=== PATIENT | male | born 1985 | race Caucasian/White ===

== ENCOUNTER → 2017-08-22 | Outpatient (REF) | payer BC ==
[2017-08-22 11:06] LABS: PLATELET COUNT, AUTOMATED 193 K/uL (150-450)
== END ==
PROVIDERS: ATTEND Nurse Practitioner Family
DX: R52 Pain, unspecified (principal)
CPT/HCPCS: 82040; 82247; 82310; 82374; 82435; 82565; 82947; 84075; 84132; 84155; 84295; 84450; 84460; 84520; 85025; 85651

== ENCOUNTER 2018-01-21 20:02 | Emergency (ER) | payer BC ==
--- NOTE | 2018-01-21 20:08 | ER Report ---
History and Physical Time Seen By MD: 20:08 (ASAD CASTILLO-SAHRA) HPI/ROS CHIEF COMPLAINT: Abdominal pain and diarrhea HISTORY OF PRESENT ILLNESS: This is a 32-year-old male who presents to the emergency department for abdominal pain and diarrhea. Patient states that about 3 weeks ago he was in [facility], [place] a [place], upon returning had about 4-5 days worth of diarrhea, did follow up with his primary care provider was given a prescription for azithromycin, after about 24 hours the stooling did resolve. Patient states he's been doing okay since then however last night he began to have some systemic aches and chills, "bone achiness". Then developed some loose stools, progressively getting worse throughout the course of today, states it is dark, no however no blood. Patient denies taking any other medications other than NyQuil last night. Denies chest pain or shortness of breath. No documented fevers at home. The patient was also given a stool kit, states he did collect some stool however he did not return to the lab for analysis when he had his 1st episode of diarrhea. REVIEW OF SYSTEMS: Respiratory: No cough, no dyspnea. Cardiovascular: No chest pain, no palpitations. Gastrointestinal: As above. Musculoskeletal: As above. (ASAD CASTILLO-SAHRA) Allergies: Coded Allergies: No Known Drug Allergies (Unverified , 01/21/18) Home Meds Active Scripts Ciprofloxacin Hcl 500 Mg Tab (CIPRO 500 MG TAB) 500 Mg Tablet, 500 MG PO BID for infection, #14 Prov:JESÚS WALLACEQuique Mandujano DO 01/21/18 Past Medical/Surgical History The patient has no significant past medical or surgical history. (ASAD CASTILLO-SAHRA) Reviewed Nurses Notes: Yes (ASAD CASTILLO) Constitutional Vital Sign - Last 24 Hours 01/21/18 01/21/18 01/21/18 01/21/18 20:02 20:07 20:08 20:17 Temp 98.6 Pulse ??? 99 94 Resp 22 18 B/P (MAP) 115/84 115/84 (94) Pulse Ox 92 O2 Delivery Room Air 01/21/18 01/21/18 01/21/18 01/21/18 20:30 20:32 20:47 21:00 Pulse 92 85 Resp 33 B/P (MAP) 113/73 (86) 110/64 (79) Pulse Ox 91 93 01/21/18 01/21/18 01/21/18 01/21/18 21:02 21:32 21:45 21:47 Temp 100.7 Pulse 88 84 89 Resp 13 Pulse Ox 93 01/21/18 01/21/18 01/21/18 01/21/18 21:52 22:03 22:07 22:10 Temp 99.0 Pulse ??? 80 B/P (MAP) 109/59 (76) Pulse Ox 90 01/21/18 01/21/18 01/21/18 01/21/18 22:22 22:30 22:37 22:52 Pulse 93 73 72 Resp 11 20 20 B/P (MAP) 110/72 (85) Pulse Ox 92 89 90 01/21/18 01/21/18 01/21/18 01/21/18 23:00 23:07 23:22 23:37 Pulse 69 83 ??? Resp 17 43 B/P (MAP) 111/67 (82) Pulse Ox 89 94 01/21/18 23:38 Temp 97.8 (SHIRLENE WALLACE DO) Physical Exam General Appearance: The patient is alert, has no immediate need for airway protection and no current signs of toxicity. Eyes: Pupils equal and round no injection. Respiratory: Chest is non tender, lungs are clear to auscultation. Cardiac: regular rate and rhythm, no murmurs, clicks or rubs. Gastrointestinal: Abdomen is soft and mildly tender bilateral lower quadrants, no masses, bowel sounds normal. Musculoskeletal: Neck: Neck is supple and non tender. Extremities have full range of motion and are non tender. Skin: No rashes or lesions. DIFFERENTIAL DIAGNOSIS: After history and physical exam differential diagnosis was considered for abdominal pain including but not limited to appendicitis, cholecystitis, gastritis and urinary tract infection. (ASAD CASTILLO-) Medical Decision Making Data Points Result Diagram: 01/21/18201701/21/182017 Laboratory Hematology Test 01/21/18 20:18 01/21/18 20:19 01/21/18 21:20 Red Blood Count 5.45 M/uL (4.00-5.60) Mean Corpuscular Volume 86.2 fL (80.0-96.0) Mean Corpuscular Hemoglobin 30.5 pg (26.0-33.0) Mean Corpuscular Hemoglobin Concent 35.3 g/dL (32.0-36.0) Red Cell Distribution Width 12.4 % (11.5-14.5) Mean Platelet Volume 8.9 fL (7.2-11.1) Neutrophils (%) (Auto) 78.3 % (39.4-72.5) Lymphocytes (%) (Auto) 15.0 % (17.6-49.6) Monocytes (%) (Auto) 5.3 % (4.1-12.4) Eosinophils (%) (Auto) 0.8 % (0.4-6.7) Basophils (%) (Auto) 0.6 % (0.3-1.4) Nucleated RBC Relative Count (auto) 0.1 /100WBC Neutrophils # (Auto) 7.5 K/uL (2.0-7.4) Lymphocytes # (Auto) 1.4 K/uL (1.3-3.6) Monocytes # (Auto) 0.5 K/uL (0.3-1.0) Eosinophils # (Auto) 0.1 K/uL (0.0-0.5) Basophils # (Auto) 0.1 K/uL (0.0-0.1) Nucleated RBC Absolute Count (auto) 0.01 K/uL Sodium Level 136 mmol/L (137-145) Potassium Level 3.9 mmol/L (3.5-5.0) Chloride Level 101 mmol/L (98-107) Carbon Dioxide Level 24 mmol/L (22-30) Blood Urea Nitrogen 11 mg/dl (9-21) Creatinine 1.20 mg/dl (0.66-1.25) Glomerular Filtration Rate Calc > 60.0 Random Glucose 106 mg/dl (75-110) Calcium Level 9.2 mg/dl (8.4-10.2) Total Bilirubin 0.9 mg/dl (0.2-1.3) Aspartate Amino Transf (AST/SGOT) 15 U/L (0-35) Alanine Aminotransferase (ALT/SGPT) 26 U/L (0-56) Alkaline Phosphatase 58 U/L (0-126) Total Protein 7.5 g/dl (6.3-8.2) Albumin 4.3 g/dl (3.5-5.0) Lipase 56 U/L (23-300) Influenza Virus Type A (PCR) Negative (NEGATIVE) Influenza Virus Type B (PCR) Negative (NEGATIVE) Urine Color Yellow Urine Clarity Clear Urine pH 5.0 pH (4.8-9.5) Urine Specific [place] 1.020 Urine Protein Negative mg/dL (NEGATIVE) Urine Glucose (UA) Negative mg/dL (NEGATIVE) Urine Ketones Trace mg/dL (NEGATIVE) Urine Blood Negative (NEGATIVE) Urine Nitrite Negative (NEGATIVE) Urine Bilirubin Negative (NEGATIVE) Urine Urobilinogen Negative mg/dL (0.2-1.9) Urine Leukocyte Esterase Negative (NEGATIVE) Urine RBC <1 /HPF (0-2/HPF) Urine WBC <1 /HPF (0-5/HPF) Urine Squamous Epithelial Cells None /LPF (</=FEW) Urine Bacteria Negative /HPF (NONE-FEW) Urine Mucus Few /HPF (NONE-FEW) Stool Occult Blood (IFOB) Positive (NEGATIVE) Stool Leukocytes, Qualitative Positive Clostridium Difficile Toxin A & B Negative Clostridium difficile Antigen Negative Chemistry Test 01/21/18 20:18 01/21/18 20:19 01/21/18 21:20 White Blood Count 9.6 k/uL (4.5-11.0) Red Blood Count 5.45 M/uL (4.00-5.60) Hemoglobin 16.6 g/dL (14.0-18.0) Hematocrit 47.0 % (42.0-52.0) Mean Corpuscular Volume 86.2 fL (80.0-96.0) Mean Corpuscular Hemoglobin 30.5 pg (26.0-33.0) Mean Corpuscular Hemoglobin Concent 35.3 g/dL (32.0-36.0) Red Cell Distribution Width 12.4 % (11.5-14.5) Platelet Count 183 K/uL (150-450) Mean Platelet Volume 8.9 fL (7.2-11.1) Neutrophils (%) (Auto) 78.3 % (39.4-72.5) Lymphocytes (%) (Auto) 15.0 % (17.6-49.6) Monocytes (%) (Auto) 5.3 % (4.1-12.4) Eosinophils (%) (Auto) 0.8 % (0.4-6.7) Basophils (%) (Auto) 0.6 % (0.3-1.4) Nucleated RBC Relative Count (auto) 0.1 /100WBC Neutrophils # (Auto) 7.5 K/uL (2.0-7.4) Lymphocytes # (Auto) 1.4 K/uL (1.3-3.6) Monocytes # (Auto) 0.5 K/uL (0.3-1.0) Eosinophils # (Auto) 0.1 K/uL (0.0-0.5) Basophils # (Auto) 0.1 K/uL (0.0-0.1) Nucleated RBC Absolute Count (auto) 0.01 K/uL Glomerular Filtration Rate Calc > 60.0 Calcium Level 9.2 mg/dl (8.4-10.2) Total Bilirubin 0.9 mg/dl (0.2-1.3) Aspartate Amino Transf (AST/SGOT) 15 U/L (0-35) Alanine Aminotransferase (ALT/SGPT) 26 U/L (0-56) Alkaline Phosphatase 58 U/L (0-126) Total Protein 7.5 g/dl (6.3-8.2) Albumin 4.3 g/dl (3.5-5.0) Lipase 56 U/L (23-300) Influenza Virus Type A (PCR) Negative (NEGATIVE) Influenza Virus Type B (PCR) Negative (NEGATIVE) Urine Color Yellow Urine Clarity Clear Urine pH 5.0 pH (4.8-9.5) Urine Specific [place] 1.020 Urine Protein Negative mg/dL (NEGATIVE) Urine Glucose (UA) Negative mg/dL (NEGATIVE) Urine Ketones Trace mg/dL (NEGATIVE) Urine Blood Negative (NEGATIVE) Urine Nitrite Negative (NEGATIVE) Urine Bilirubin Negative (NEGATIVE) Urine Urobilinogen Negative mg/dL (0.2-1.9) Urine Leukocyte Esterase Negative (NEGATIVE) Urine RBC <1 /HPF (0-2/HPF) Urine WBC <1 /HPF (0-5/HPF) Urine Squamous Epithelial Cells None /LPF (</=FEW) Urine Bacteria Negative /HPF (NONE-FEW) Urine Mucus Few /HPF (NONE-FEW) Stool Occult Blood (IFOB) Positive (NEGATIVE) Stool Leukocytes, Qualitative Positive Clostridium Difficile Toxin A & B Negative Clostridium difficile Antigen Negative Urinalysis Test 01/21/18 21:20 Urine Color Yellow Urine Clarity Clear Urine pH 5.0 pH (4.8-9.5) Urine Specific [place] 1.020 Urine Protein Negative mg/dL (NEGATIVE) Urine Glucose (UA) Negative mg/dL (NEGATIVE) Urine Ketones Trace mg/dL (NEGATIVE) Urine Blood Negative (NEGATIVE) Urine Nitrite Negative (NEGATIVE) Urine Bilirubin Negative (NEGATIVE) Urine Urobilinogen Negative mg/dL (0.2-1.9) Urine Leukocyte Esterase Negative (NEGATIVE) Urine RBC <1 /HPF (0-2/HPF) Urine WBC <1 /HPF (0-5/HPF) Urine Squamous Epithelial Cells None /LPF (</=FEW) Urine Bacteria Negative /HPF (NONE-FEW) Urine Mucus Few /HPF (NONE-FEW) (SHIRLENE WALLACE DO) Microbiology Microbiology Date/Time Source Procedure Growth Status 01/21/18 21:20 Stool Stool Culture - Preliminary CHECKING FOR POSSIBLE PATHOGENS, WORK... Resulted (SHIRLENE WALLACE DO) ED Course/Re-evaluation Clinical Indication for ER IV: Hydration, IV Access ED Course The patient was admitted to room. A history and physical obtained. Differential diagnoses were considered. IV was started. A 1 L normal saline bolus was given. A CBC, CMP and lipase were obtained. Lab studies and unremarkable. 30 mg IV Toradol. Patient states feeling better after the liter of fluid and Toradol. A UA and stool samples were collected. Patient didn't spike a fever, was also given a 1000mg Ofirmev, IV. The patient did feel much better after the Toradol as well as the Ofirmev, the temperature did come down to 99. I did review the case with Dr. Wallace, he did assume care of the patient. Patient is aware of this. See Dr. Kam notes. Decision to Disposition Date: Jan 21, 2018 Decision to Disposition Time: 22:22 Turned Over The care of the patient was turned over to Dr. Wallace. DMITRIY Benjamin I authorize my typed signature that I authenticated this report. (ASAD CASTILLO-) Clinical Indication for ER IV: IV Access ED Course Care assumed at shift change. With diagnostic stool studies pending. Patient with vomiting and diarrhea. Stool studies show a positive occult blood and positive wbc's suggesting infectious diarrhea. We'll place the patient on Cipro 500 mg twice a day. He is advised a clear liquid diet. Decision to Disposition Date: Jan 21, 2018 Decision to Disposition Time: 23:19 (SHIRLENE WALLACE DO) Depart Departure Latest Vital Signs Vital Signs Date Time Temp Pulse Resp B/P (MAP) Pulse Ox O2 Delivery O2 Flow Rate FiO2 01/21/18 23:38 97.8 01/21/18 23:37 ??? 01/21/18 23:22 43 94 01/21/18 23:00 111/67 (82) 01/21/18 20:07 Room Air (SHIRLENE WALLACE DO) Impression: Primary Impression: Abdominal pain Additional Impression: Infectious diarrhea Condition: Improved Disposition: HOME OR SELF-CARE Referrals: SUMAN ACE PA-C (PCP) New Scripts Ciprofloxacin Hcl 500 Mg Tab (CIPRO 500 MG TAB) 500 Mg Tablet 500 MG PO BID for infection, #14 Prov: SHIRLENE WALLACE DO 01/21/18 Patient Instructions: Abdominal Pain (ED), Acute Diarrhea (ED), Clear Liquid Diet (DC) Additional Instructions: Treat your aches and pains with 600-800mg Ibuprofen every 8 hours or 500-1000mg Tylenol every 8 hours. Drink plenty of fluids. Get plenty of rest. Clear liquid diet for the next 24 hours. I would recommend following up with your primary care provider next week for reevaluation if no improvement. Return to the ED for any other concerns or worsening symptoms. Problem Qualifiers Primary Impression: Abdominal pain Abdominal location: lower abdomen, unspecified Qualified Codes: R10.30 - Lower abdominal pain, unspecified ASAD CASTILLO TILE ROOFER- Jan 21, 2018 20:08 SHIRLENE WALLACE DO Jan 21, 2018 23:20
[2018-01-21] MEDS ORDERED: NS(*) 0.9% 1000 ML BAG 1,000 ML IV ONE (20:20)
[2018-01-21 20:30] LABS: PLATELET COUNT, AUTOMATED 183 K/uL (150-450)
[2018-01-21] MEDS ORDERED: KETOROLAC 30 MG/ML VIAL IVP ONE (21:05)
[2018-01-21] MEDS ORDERED: ACETAMINOPHEN(*)1000 MG/100 ML 100 ML IVPB ONE (21:45)
[2018-01-21 23:00] VITALS: BP 111/67
[2018-01-21] MEDS ORDERED: CIPR-344 PO (23:20)
[2018-01-21] MEDS ORDERED: CIPROFLOXACIN 500 MG TAB PO ONE (23:25)
== END 2018-01-21 23:39 | disposition home or self-care (01) ==
LOC: ER 20:16
DX: A09 Infectious gastroenteritis and colitis, unspecified (principal); R10.30 Lower abdominal pain, unspecified
CPT/HCPCS: 81001; 82274; 83630; 83690; 85025; 87045; 87177; 87324; 87449; 87502; 96361; 96374; 96375; 99284; J0131; J1885; J7030; 82040; 82247; 82310; 82374; 82435; 82565; 82947; 84075; 84132; 84155; 84295; 84450; 84460; 84520

== ENCOUNTER → 2018-11-01 | Outpatient (CLI) | payer BC ==
[~2018-11-01] MED LIST: CIPR-344 PO
== END ==
LOC: LAB 08:57
PROVIDERS: ATTEND Urology
DX: N46.9 Male infertility, unspecified (principal)
CPT/HCPCS: 36415; 83001; 83002; 84146; 84402; 84403